=== PATIENT | female | born 1940 | race Caucasian/White ===

== ENCOUNTER 2016-09-12 13:48 | Emergency (ER) | payer MEDICARE, BC ==
[2016-09-12 14:06] VITALS: TEMP 97.4; O2SAT 98
[2016-09-12] MEDS ORDERED: SODIUM CHLORIDE 0.9% 1000ML 1,000 ML IV ONE (14:11)
[2016-09-12] MEDS ORDERED: ONDANSETRON HCL 4 MG/2 ML SOL ONE (14:19)
[2016-09-12] MEDS ORDERED: ONDANSETRON HCL 4 MG/2 ML SOL IV ONE (14:20)
[2016-09-12 14:21] LABS: BASOPHILS % (AUTO) 1 % (0-3); EOSINOPHILS % (AUTO) 1 % (0-9); HEMATOCRIT 39 % (35-47); MEAN CORPUSCULAR HGB CONC 33.1 gm/dl (32.0-36.0); MEAN CORPUSCULAR VOLUME 89 fL (81-99); MONOCYTES % (AUTO) 7.9 % (0-12); NEUTROPHILS % (AUTO) 54.7 % (37-80)
[2016-09-12] MEDS ORDERED: SODIUM CHLORIDE 0.9% 500 ML 500 ML IV ONE (15:55)
[2016-09-12 17:03] VITALS: BP 127/63; PULSE 59; RESP 20
== END 2016-09-12 17:00 | disposition home or self-care (01) | DRG 641 ==
LOC: ED 13:48
DX: E86.0 Dehydration (principal); R00.1 Bradycardia, unspecified; R11.2 Nausea with vomiting, unspecified
CPT/HCPCS: 80048; 84484; 85025; 85610; 93005; 99285; J2405

== ENCOUNTER 2016-09-13 12:42 | Emergency (ER) | payer MEDICARE, BC ==
[2016-09-13 13:16] VITALS: RESP 22; TEMP 96.4
[2016-09-13] MEDS ORDERED: SODIUM CHLORIDE 0.9% 1000ML 1,000 ML IV ONE (13:21)
[2016-09-13 15:49] VITALS: BP 145/72; PULSE 49; O2SAT 98
== END 2016-09-13 15:17 | disposition home or self-care (01) | DRG 641 ==
LOC: ED 12:42
DX: E86.0 Dehydration (principal)
CPT/HCPCS: 99283

== ENCOUNTER 2018-01-19 20:27 | Emergency (ER) | payer MEDICARE, BC ==
[2018-01-19 20:38] VITALS: RESP 16; TEMP 96.8
[2018-01-19] MEDS ORDERED: MECLIZINE HYDROCHLORIDE 12.5 MG TAB PO ONE (21:03)
[2018-01-19] MEDS ORDERED: MECLIZINE HYDROCHLORIDE 12.5 MG TAB ONE (21:09)
[2018-01-19 22:09] VITALS: BP 172/82; PULSE 54; O2SAT 100
== END 2018-01-19 22:00 | disposition home or self-care (01) | DRG 149 ==
LOC: ED 20:27
DX: R42 Dizziness and giddiness (principal)
CPT/HCPCS: 99283; A9270-GY